=== PATIENT | male | born 1990 | race Caucasian/White ===

== ENCOUNTER → 2017-09-26 | Outpatient (CLI) | payer OTHER ==
--- NOTE | 2017-09-26 11:30 | XR ---
EXAMINATION TYPE: XR lumbar spine 2 or 3V DATE OF EXAM: 09/26/2017 COMPARISON: NONE HISTORY: 27-year-old male low back pain TECHNIQUE: 3 views FINDINGS: Mild facet degenerative change lower lumbar spine. Overall disc interspaces and vertebral body height s are maintained. Alignment preserved. Slight levoconvex curvature. IMPRESSION: 1. Suggestion of mild degenerative facet changes lower lumbar spine. No malalignment. 2. No vertebral compression collapse. 3. Slight levoconvex curvature could be positional, due to muscle spasm, or a very gentle scoliosis.
== END | disposition home or self-care (01) ==
LOC: RADXRMAIN 10:55
PROVIDERS: ATTEND Family Medicine
DX: M43.8X6 Other specified deforming dorsopathies, lumbar region (principal)
CPT/HCPCS: 72100

== ENCOUNTER → 2018-02-17 | Outpatient (CLI) | payer OTHER ==
--- NOTE | 2018-02-17 10:56 | MR ---
EXAMINATION TYPE: MR knee LT wo con DATE OF EXAM: 02/17/2018 COMPARISON: NONE HISTORY: Left knee pain per order. Pain and swelling for 4 months per patient TECHNIQUE: Multiplanar, multisequence images of the knee is performed without IV contrast. FINDINGS: MEDIAL MENISCUS: Some increased signal noted anterior and posterior horns of medial meniscus sagittal image 26 does not distinctly extend to articular surface. Cannot exclude intrasubstance tear. No ful l-thickness meniscal tear is present LATERAL MENISCUS: Anterior and posterior horns are intact without tear. CRUCIATE LIGAMENTS: The anterior and posterior cruciate ligaments are intact and unremarkable. COLLATERAL LIGAMENTS: The medial collateral ligament and lateral collateral ligament complex are inta ct and unremarkable. EXTENSOR MECHANISM: Visualized quadriceps and patellar tendons are intact. EFFUSION: No significant suprapatellar joint effusion. POPLITEAL CYST: No popliteal/alejandro cyst. TRICOMPARTMENT SPACES: Tricompartment joint spaces are preserved. No significant spurring is seen. CARTILAGE: Tricompartment articular cartilage is maintained. No significant chondromalacia patella. BONE MARROW SIGNAL: There is partial visualization of heterogeneous osseous lesion distal femoral clara physis seen best coronal image 21 extending to medial cortex axial image 34. OTHER: No additional significant abnormality is appreciated. IMPRESSION: 1. Possible intrasubstance tear medial meniscus, no full-thickness meniscal or ligamentous tear ident ified. 2. Partial visualization of nonspecific osseous lesion distal femoral diaphysis, advised starting wit h dedicated plain films to further evaluate.
== END | disposition home or self-care (01) ==
LOC: RADMRIMAIN 09:42
PROVIDERS: ATTEND Family Medicine
DX: M89.8X5 Other specified disorders of bone, thigh (principal); M25.562 Pain in left knee

== ENCOUNTER → 2018-02-21 | Outpatient (CLI) | payer OTHER ==
--- NOTE | 2018-02-21 12:26 | XR ---
EXAMINATION TYPE: XR knee complete LT DATE OF EXAM: 02/21/2018 COMPARISON: Left knee MRI dated 02/17/2018 HISTORY: Abnormal prior left knee MRI. Left knee pain for 4 months per patient history. TECHNIQUE: 3 views of the left knee were obtained. FINDINGS: There is a 3.1 x 6.4 cm multiloculated lucent osseous lesion with a sclerotic rim within th e medial distal diaphysis of the left femur. This is radiographically most consistent with a nonossif azeb fibroma and is contiguous with the cortex containing multiple internal cystic spaces. No periost eal reaction is seen or cortical erosion. This has a narrow zone of transition. No acute fracture or dislocation is seen of the left knee. No significant arthropathy is identified. 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
== END | disposition home or self-care (01) ==
LOC: RADXRMAIN 11:27
PROVIDERS: ATTEND Family Medicine
DX: R93.89 Abnormal findings on diagnostic imaging of other specified body structures (principal)

== ENCOUNTER → 2018-02-24 | Outpatient (CLI) | payer OTHER ==
--- NOTE | 2018-02-24 23:50 | CT ---
EXAMINATION TYPE: CT sinus wo con DATE OF EXAM: 02/24/2018 COMPARISON: None HISTORY: 27-year-old male Chronic sinusitis - right side worse CT DLP: 667 mGycm Automated exposure control for dose reduction was used. TECHNIQUE: Noncontrast axial views of the paranasal sinuses were obtained. Coronal reconstructions pe rformed. FINDINGS: PARANASAL SINUSES: Trace mucosal thickening along the floor of the right maxillary sinus and moderate lobulated pleural thickening floor of the left maxillary sinus. Scattered mild mucosal thickening within the bilateral ethmoid air cells. The sphenoid and frontal sinuses are well pneumatized. There is no air-fluid level. Reactive saroj- osteogenesis is not seen. There is no destruction of the osseous cordova of the paranasal sinuses. THE NASAL CAVITY: The osteomeatal complexes are patent. Slight rightward nasal septal deviation. The imaged brain and orbits are normal in appearance. The visualized mastoid air cells and middle ear cavities are well pneumatized. Reformatted images confirm above findings. IMPRESSION: 1. Moderate lobulated mucosal thickening limited to the floor of the left maxillary sinus and mild mu cosal thickening floor of the right maxillary sinus. Additional scattered mild chronic ethmoid sinus disease. 2. Slight rightward nasal septal deviation.
== END | disposition home or self-care (01) ==
LOC: RADCTMAIN 13:58
PROVIDERS: ATTEND Otolaryngology
DX: J34.2 Deviated nasal septum (principal); J32.2 Chronic ethmoidal sinusitis; J32.9 Chronic sinusitis, unspecified
CPT/HCPCS: 70486

== ENCOUNTER 2018-03-26 09:03 | Day surgery (SDC) | payer OTHER ==
[2018-03-19 13:15] VITALS: BMI 28.0
[~2018-03-26 09:03] MED LIST: DEXAMETHASONE SOD PHOSPHATE 4 MG/ML 1 ML VIAL IV ONE; FAMOTIDINE 20 MG/2 ML VIAL IV ONE; HYDROmorphone 0.5 MG/0.5 ML SYRINGE IVP PRN; LACTATED RINGERS 1,000 ML IV SCH; MIDAZOLAM 2 MG/2 ML VIAL IV PRN; ONDANSETRON 4 MG/2 ML VIAL IVP ONE; SCOPOLAMINE 1.5MG/72HR PATCH TRANSDERM ONE; ceFAZolin 1,000 MG in DEXTROSE/WATER 1 50ML.BAG IV ONE
[2018-03-26] MEDS: OXYMETAZOLINE 0.05% NASL SPRAY 1 SPRAY BOTTLE NASAL ONE ×5 (09:25→09:45)
[2018-03-26] MEDS ORDERED: fentaNYL (PF) 50 MCG/ML 2 ML AMP ONE (11:20)
[2018-03-26] MEDS ORDERED: NEOSTIGMINE 1 MG/ML 10 ML VIAL ONE (11:20)
[2018-03-26] MEDS ORDERED: LIDOCAINE 1% INJ 10MG/ML (20 ML MDV) ONE (11:20)
[2018-03-26] MEDS ORDERED: ROCURONIUM BROMIDE 10 MG/ML 10 ML VIAL IV ONE (11:20)
[2018-03-26] MEDS ORDERED: PROPOFOL 10 MG/ML 20 ML VIAL IV ONE (11:20)
[2018-03-26] MEDS ORDERED: GLYCOPYRROLATE 0.2 MG/ML 2 ML VIAL ONE (11:20)
[2018-03-26] MEDS ORDERED: MIDAZOLAM 2 MG/2 ML VIAL ONE (11:20)
[2018-03-26] MEDS ORDERED: DEXAMETHASONE SOD PHOS (MDV) 100 MG/10 ML VIAL ONE (11:20)
[2018-03-26] MEDS ORDERED: LIDOCAINE 1%-EPI 1:100,000 20 ML VIAL SUBMUCOSAL ONE ×2 (11:40)
[2018-03-26] MEDS ORDERED: BACITRACIN 500 UNIT/GM OINT 28.4 GM TUBE TOPICAL ONE (11:45)
--- NOTE | 2018-03-26 12:40 | P.OP ---
Date of Procedure: 03/26/18 Preoperative Diagnosis: Deviated nasal septum Inferior turbinate hypertrophy Chronic sinusitis Postoperative Diagnosis: Same Procedure(s) Performed: Septoplasty Outfracture and submucous resection of the inferior turbinates Bilateral endoscopic sinus surgery including bilateral maxillary antrostomy with removal of tissue from the left maxillary sinus, bilateral anterior ethmoidectomy Anesthesia: TAO Surgeon: Baldomero Lombardi Estimated Blood Loss (ml): 5 Pathology: other Condition: stable Disposition: PACU Indications for Procedure: This is a 27-year-old white male whose had difficulties with chronic nasal airway obstruction and congestion as well as recurrent sinusitis Operative Findings: Septum deviated to the right with inferior turbinate hypertrophy bilaterally. Maxillary ostia were obstructed bilaterally with mild mucosal thickening in the ethmoid sinuses and a cyst in the left maxillary sinus Description of Procedure: Patient brought in the operative suite and placed in a supine position. Patient underwent induction of general oral endotracheal intubation without difficulty. The patient was prepped and draped in usual aseptic fashion with the orbits in the operating field for monitoring throughout the case. Computed tomography scan sinuses on the computer screen throughout the case for review also. Lidocaine with 1-100,000 epinephrine was infused submucosally both sides nasal septum as well as lateral nasal cordova and anterior tips the middle turbinates bilaterally. While this was taking vasoconstrictive effect the inferior turbinates were infractured with [place] elevator partial submucous resection inferior turbinates performed with Coblation wand this ablating a portion of the submucosal soft tissue and then were outfractured with [place] elevator. A left hemitransfixion incision was made and mucoperichondrial and the mucoperiosteal flap the left elevated. Bony cartilaginous junction was disarticulated and mucoperiosteal flap on the right was elevated. The nasoseptal deformities were removed Tj forceps. An inferior cartilaginous strip was removed leaving a full 1.5 cm caudal strut. Checking intranasally this corrected the nasoseptal deformities and the hemitransfixion incision was closed with a running 4-0 chromic suture. 0 endoscopic evaluation was performed bilaterally. Beginning on the left the middle turbinate was medialized with the [place] elevator. A left ostium located with a ballpoint probe and infundibulotomy performed followed by uncinectomy as well as maxillary antrostomy which was enlarged taking care anteriorly not to injure the lacrimal bone. 30 endoscope was used to visualize Sinus cyst removed with giraffe forceps. The ethmoid bulla was overhanging and to some mucosal thickening noted on the computed tomography scan in the ethmoid sinus ethmoid bullectomy was performed. Proceeding on the right the procedures were followed as they were on the left including medialization middle turbinate infundibulotomy uncinectomy maxillary antrostomy with exploration of the right maxillary sinus and ethmoid bullectomy thus performing a partial anterior ethmoidectomy bilaterally. Once this was completed a pledget of xerogel was placed in the middle meatus bilaterally. Bilateral [place] airway splints coated bacitracin ointment were placed in nasal cavities and sutured trans-septally with a 4-0 Vicryl suture. Patient was suctioned in oral gastric fashion and was allowed to emerge from general anesthesia having tolerated procedure well was extubated in the operating suite and transferred postoperative recovery area in satisfactory condition.
[2018-03-26 12:53] VITALS: TEMP 97.3
[2018-03-26] MEDS ORDERED: ONDANSETRON 4 MG/2 ML VIAL IVP ONE (13:57)
[2018-03-26] MEDS ORDERED: SCOPOLAMINE 1.5MG/72HR PATCH TRANSDERM ONE (13:58)
[2018-03-26] MEDS ORDERED: ACETAMINOPHEN TAB 500 MG TAB PO ONE (14:20)
[2018-03-26 14:42] VITALS: RESP 18
[2018-03-26] MEDS ORDERED: HALOPERIDOL LACTATE 5 MG/ML 1 ML VIAL IVP PRN (16:00)
[2018-03-26 16:11] VITALS: BP 117/72; PULSE 91
== END 2018-03-26 16:25 | disposition home or self-care (01) ==
LOC: OR 09:03
PROVIDERS: ATTEND Otolaryngology
DX: J32.9 Chronic sinusitis, unspecified (principal); J34.2 Deviated nasal septum; J34.3 Hypertrophy of nasal turbinates; J34.1 Cyst and mucocele of nose and nasal sinus; J45.909 Unspecified asthma, uncomplicated; F32.9 Major depressive disorder, single episode, unspecified; K58.9 Irritable bowel syndrome, unspecified; Z79.899 Other long term (current) drug therapy
CPT/HCPCS: 88305; 88300; 30520; 30140; 31267; 31254; J2250; J1630; J1100 ×2; J2710; J2405; J2001; J3010; J0690; J2704

== ENCOUNTER → 2020-09-01 | Outpatient (CLI) | payer OTHER ==
--- NOTE | 2020-09-01 15:02 | US ---
EXAMINATION TYPE: US abdomen complete DATE OF EXAM: 09/01/2020 COMPARISON: US 04/21/10, CT 05/16/10 CLINICAL HISTORY: R11.10 Vomiting, unspecified. EXAM MEASUREMENTS: Liver Length: 16.2 cm Gallbladder Wall: 0.2 cm CBD: 0.4 cm Spleen: 12.5 cm Right Kidney: 10.6 x 5.8 x 4.4 cm Left Kidney: 12.4 x 5.4 x 4.9 cm Pancreas: Partially obscured by bowel gas at head and tail, visualized portions wnl Liver: Increased attenuation, decreased visualization of vessels suggestive of fatty infiltrate Gallbladder: No gallstones, sludge or pericholecystic fluid seen Evidence for sonographic Perez's sign: No CBD: wnl Spleen: wnl Right Kidney: No hydronephrosis or shadowing renal calculi seen Left Kidney: No hydronephrosis or shadowing renal calculi seen Upper IVC: wnl Abd Aorta: wnl IMPRESSION: 1. The head and tail of the pancreas are poorly visualized due to overlying bowel gas. 2. No gallstones, sludge, or pericholecystic fluid. Common duct is within normal limits. 3. No hydronephrosis or shadowing renal calculi.
== END | disposition home or self-care (01) ==
LOC: RADUSWWP 07:07
PROVIDERS: ATTEND Family Medicine
DX: R11.10 Vomiting, unspecified (principal)
CPT/HCPCS: 76700

== ENCOUNTER → 2021-01-12 | Outpatient (CLI) | payer OTHER | END | disposition home or self-care (01) | LOC: LABWHC1 10:47 | PROVIDERS: ATTEND Family Medicine | DX: R11.2 Nausea with vomiting, unspecified (principal) | CPT/HCPCS: 36415 ==

== ENCOUNTER → 2021-04-05 | Outpatient (CLI) | payer OTHER ==
--- NOTE | 2021-04-06 07:30 | XR ---
EXAMINATION TYPE: XR Hip Complete RT DATE OF EXAM: 04/05/2021 CLINICAL HISTORY: Right hip pain. TECHNIQUE: AP and frogleg views of the right hip are obtained. COMPARISON: None. FINDINGS: There is no acute fracture/dislocation evident in the right hip. The joint space in the r ight hip appears within normal limits. Femoral head shape is maintained. The overlying soft tissue a ppears unremarkable. IMPRESSION: Unremarkable study.
== END | disposition home or self-care (01) ==
LOC: RADXRMAIN 16:06
PROVIDERS: ATTEND Family Medicine
DX: M25.551 Pain in right hip (principal)
CPT/HCPCS: 73502

== ENCOUNTER → 2022-11-06 | Outpatient (CLI) | payer BC ==
--- NOTE | 2022-11-06 12:25 | NM ---
EXAMINATION TYPE: NM gastric emptying static DATE OF EXAM: 11/06/2022 COMPARISON: 05/16/2010 CLINICAL INDICATION: Male, 32 years old with history of R11.2 NAUSEA WITH VOMITING, UNSPECIFIED; Following administration of 2.0 mCi Tc 99m Sulfur Colloid with 4 OUNCES EGGS, 4 OUNCES OF WATER, 1/3 PIECE OF TOAST WITH BUTTER & JELLY, projection images of the abdomen were obtained 8 minutes post ing estion. Patient Emptying Values 1 Hour 23 % 2 Hours 58 % 3 Hours 78 % 4 Hours 84 % Gastroesophagel reflux: None IMPRESSION: Gastric emptying: Normal gastric emptying at 1-3 hours slightly below normal at 4 hours Gastroesophageal reflux: Not identified
== END | disposition home or self-care (01) ==
LOC: RADNMMAIN 07:01
PROVIDERS: ATTEND Internal Medicine Gastroenterology
DX: R11.2 Nausea with vomiting, unspecified (principal)
CPT/HCPCS: 78264; A9541

== ENCOUNTER → 2023-03-19 | Outpatient (CLI) | payer BC ==
--- NOTE | 2023-03-25 21:55 | XR ---
EXAMINATION TYPE: XR cervical spine limited DATE OF EXAM: 03/19/2023 10:40 AM CLINICAL INDICATION:Male, 32 years old with history of M54.2 Cervicalgia; [facility] COMPARISON: None TECHNIQUE: The cervical spine was imaged in frontal, lateral, and odontoid views. FINDINGS: The osseous structures show normal alignment without evidence of an acute fracture. Mild disc space n arrowing with anterior more than posterior marginal osteophytes at the C5-C6 level. Mild facet arthro kalpana throughout. The dens and lateral masses appear intact and normally aligned. Alignment appears p reserved. No significant prevertebral soft tissue thickening. If clinical concern persists, CT or MRI may be obtained as indicated for further evaluation. IMPRESSION: 1. No radiographic evidence of fracture or dislocation. 2. Mild degenerative disc disease changes of the cervical spine, mostly C5-6.
== END | disposition home or self-care (01) ==
LOC: RADXRMAIN 10:30
PROVIDERS: ATTEND Family Medicine
DX: M50.322 Other cervical disc degeneration at C5-C6 level (principal)
CPT/HCPCS: 72040

== ENCOUNTER → 2023-05-14 | Outpatient (CLI) | payer BC ==
--- NOTE | 2023-05-14 10:34 | MR ---
EXAMINATION TYPE: MR cervical spine wo con DATE OF EXAM: 05/14/2023 COMPARISON: None HISTORY: Chronic neck pain. CONTRAST: Performed utilizing 0 mL intravenous Gadavist gadolinium contrast. TECHNIQUE: Multiplanar multiecho imaging on a 3.0 Lety magnet is performed through the cervical spin e. FINDINGS: The craniovertebral junction is normal. Vertebral body alignment is normal. C7-T1: No focal disc herniation or significant disc bulge is evident. No spinal canal stenosis or n eural foraminal stenosis is present. C6-7: Small subligamentous disc herniation is present centrally extending posterior to the C6 level. No cord contact. No AP spinal canal stenosis present. Neural foramen are patent. C5-6: Broad-based subligamentous disc bulge is present with mild anterior thecal sac flattening. No c ord contact. No spinal canal stenosis. Neural foramen are patent.. C4-5: No focal disc herniation or significant disc bulge is evident. No spinal canal stenosis or ginny ral foraminal stenosis is present. C3-4: No focal disc herniation or significant disc bulge is evident. No spinal canal stenosis or ginny ral foraminal stenosis is present. C2-3: No focal disc herniation or significant disc bulge is evident. No spinal canal stenosis or ginny ral foraminal stenosis is present. IMPRESSION: 1. Subligamentous disc herniation C5-C6 C6-7 with mild anterior thecal sac compression. No spinal can al stenosis or cord contact evident.
== END | disposition home or self-care (01) ==
LOC: RADMRIMAIN 08:05
PROVIDERS: ATTEND Family Medicine
DX: M50.222 Other cervical disc displacement at C5-C6 level (principal); M50.223 Other cervical disc displacement at C6-C7 level; M50.30 Other cervical disc degeneration, unspecified cervical region
CPT/HCPCS: 72141

== ENCOUNTER → 2023-06-27 | Outpatient (CLI) | payer BC ==
--- NOTE | 2023-07-01 12:52 | XR ---
EXAMINATION TYPE: XR abdomen 1V DATE OF EXAM: 06/27/2023 3:29 PM CLINICAL INDICATION:Male, 33 years old with history of K31.84 GASTROPARESIS; [facility] COMPARISON: None. TECHNIQUE: One radiographic view of the abdomen was obtained. FINDINGS: The bowel gas pattern is nonspecific without dilated loops of small or large bowel. There i s no evidence for organomegaly or pneumoperitoneum. The osseous structures are intact. No abnormal calcifications are present. Phleboliths are identified in the pelvis. Fecal material and gas are de monstrated throughout the colon and rectum. IMPRESSION: Nonspecific bowel gas pattern without radiographic evidence for acute process.
== END | disposition home or self-care (01) ==
LOC: RADXRMAIN 14:54
PROVIDERS: ATTEND Family Medicine
DX: K31.84 Gastroparesis (principal)
CPT/HCPCS: 74018

== ENCOUNTER → 2023-07-02 | Outpatient (CLI) | payer BC ==
--- NOTE | 2023-07-02 11:30 | FL ---
EXAMINATION TYPE: AK UGI DATE OF EXAM: 07/02/2023 CLINICAL HISTORY: K31.84 GASTROPARESIS TECHNIQUE: An air contrast UGI study is performed. COMPARISON: None FINDINGS: Litigation Legal Assistant image of the abdomen shows no gross abnormality.The esophagus shows normal motility and emptying into the stomach. No evidence of hiatal hernia or stricture noted. There is gastroesoph ageal reflux to the midportion of the esophagus. No definite evidence for esophagitis. Mildly delayed gastric emptying noted. The stomach shows normal distensibility, peristalsis, and mucosal folds. No evidence of any mass or ulcer disease. No significant gastroesophageal reflux was seen during real time performance of this study.The duodenal bulb, sweep, and proximal small bowel loops are unremarka ble. IMPRESSION: 1.There is gastroesophageal reflux to the midportion of the esophagus. 2.Mildly delayed gastric emptying noted.
== END | disposition home or self-care (01) ==
LOC: RADUSWWP 09:53
PROVIDERS: ATTEND Family Medicine
DX: K21.9 Gastro-esophageal reflux disease without esophagitis (principal); K31.84 Gastroparesis
CPT/HCPCS: 74240